=== PATIENT | female | born 1950 | race Caucasian/White ===

== ENCOUNTER 2020-05-21 15:23 | Inpatient (IN) | payer MEDICARE, OTHER ==
[~2020-05-21] VITALS: Ht 137.2 cm; Wt 40.4 kg
[2020-05-21] MEDS ORDERED: Z GUARD REMEDY PASTE 57 GM TUBE TOP PRN (18:00)
--- NOTE | 2020-05-21 19:30 | NUR ---
Patient arrived via Ambulance from [facility]. Awake, alert, oriented x3 and very pleasant. Able to assist in [facility] bed. Denies any pain/discomforts at this time. Able to move all extremities except right LE with knee immobilizer in place. Admission process and plan of care initiated.
[2020-05-21 20:00] VITALS: BP 153/48
[2020-05-21] MEDS ORDERED: ENOX40DI SQ (20:02)
[2020-05-21] MEDS ORDERED: LOSA1TAB36 PO (20:02)
[2020-05-21] MEDS ORDERED: ASPI81TA31 PO (20:02)
[2020-05-21] MEDS ORDERED: FOLI0.8T PO (20:02)
[2020-05-21] MEDS ORDERED: METH5TAB6 PO (20:02)
[2020-05-21] MEDS ORDERED: LOSA50TA39 PO (20:02)
[2020-05-21] MEDS ORDERED: ESCI10TA PO (20:02)
[2020-05-21] MEDS ORDERED: ZOLP5TAB8 PO (20:02)
[2020-05-21] MEDS ORDERED: hydrALAZINE HCL 25 MG TABLET PO PRN (22:15)
[2020-05-21] MEDS: ZOLPIDEM 5 MG TABLET PO PRN (22:39)
[2020-05-21 23:26] LABS: *BILIRUBIN,URIN NEGATIVE (NEGATIVE); *BLOOD, URINE NEGATIVE (NEGATIVE); *CLARITY,URINE CLOUDY (CLEAR); *COLOR,URINE YELLOW (YELLOW); *KETONES,URINE NEGATIVE (NEGATIVE); *UROBILINOGEN,URINE >=8.0 E.U./dl (NORMAL); LEUKOCYTE ESTERASE ,URINE NEGATIVE (NEGATIVE); NITRITE, URINE NEGATIVE (NEGATIVE); PH,URINE 7.5 (5.0-8.0); UGLUCOSE NEGATIVE (NEGATIVE)
[2020-05-22 04:00] VITALS: BP 122/56
[2020-05-22 04:03] LABS: RBC,URINE 0-3 /HPF (0-3); WBC,URINE 0-3 /HPF (0-3)
[2020-05-22 04:04] LABS: BACTERIA,URINE FEW /HPF (NONE SEEN); URINE AMORPHOUS PHOSPHATES MANY /HPF
[2020-05-22 04:05] LABS: SQUAMOUS EPITHELIAL CELL,UR MODERATE /HPF (NONE SEEN)
--- NOTE | 2020-05-22 06:12 | NUR ---
Shift End Report: VS stable. Very nice and cooperative. No complaint presented all night. All needs attended and met. Continue care as planned.
[2020-05-22] MEDS: PANTOPRAZOLE SODIUM 40 MG TABLET.DR PO SCH (06:23)
[2020-05-22 06:26] LABS: BASOPHILS # (AUTO) 0.1 K/uL (0.0-8.0); EOSINOPHILS # (AUTO) 0.1 K/uL (0.0-0.7); EOSINOPHILS % (AUTO) 1.2 % (0.0-7.0); HEMATOCRIT 28.5 % (31.2-41.9); HEMOGLOBIN 9.7 g/dL (10.9-14.3); LYMPHOCYTES % (AUTO) 26.6 % (20.5-51.5); MEAN CORPUSCULAR HEMOGLOBIN 32.5 uug (24.7-32.8); MEAN CORPUSCULAR HGB CONC 34 g/dL (32.3-35.6); MEAN CORPUSCULAR VOLUME 95.5 fL (75.5-95.3); MONOCYTES # (AUTO) 0.6 K/uL (2.0-10.0); MONOCYTES % (AUTO) 7.8 % (0.0-11.0); NEUTROPHILS # (AUTO) 4.7 K/uL (1.8-8.9); NEUTROPHILS % (AUTO) 63.4 % (38.5-71.5); PLATELET COUNT (AUTO) 402 K/uL (179-408); RED BLOOD CELL COUNT(AUTO) 2.98 MIL/uL (3.63-4.92); WHITE BLOOD COUNT (AUTO) 7.4 K/uL (3.8-11.8)
[2020-05-22 07:49] LABS: BILIRUBIN,TOTAL 0.6 mg/dL (0.2-1.0); CREATININE 0.5 mg/dL (0.6-1.3); MAGNESIUM 2.2 mg/dL (1.8-2.4); PHOSPHOROUS 3.6 mg/dL (2.5-4.9); POTASSIUM 4.1 mmol/L (3.5-5.1)
[2020-05-22 08:00] VITALS: BP 116/56
[2020-05-22] MEDS ORDERED: HYDROCHLOROTHIAZIDE 12.5 MG CAPSULE PO SCH (09:00)
[2020-05-22] MEDS: ASPIRIN 81 MG TAB.CHEW PO SCH (09:03)
[2020-05-22] MEDS: FOLIC ACID 1 MG TABLET PO SCH (09:03)
[2020-05-22] MEDS: DOCUSATE SODIUM 100 MG CAPSULE PO SCH ×2 (09:03→21:19)
[2020-05-22] MEDS: ESCITALOPRAM OXALATE 10 MG TABLET PO SCH (09:04)
[2020-05-22] MEDS: LOSARTAN POTASSIUM 50 MG TABLET PO SCH (09:04)
[2020-05-22] MEDS: ENOXAPARIN SODIUM 40 MG/0.4 ML DISP.SYRIN SQ SCH (09:06)
[2020-05-22] MEDS: METHIMAZOLE 5 MG TABLET PO SCH (09:12)
[2020-05-22] MEDS: HYDROCODONE/APAP 10-325 MG TABLET PO PRN (09:30)
[2020-05-22 15:07] LABS: THYROID STIMULATING HORMONE 1.906 mIU/mL (0.358-3.740)
[2020-05-22 16:10] VITALS: BP 106/52
[2020-05-22 20:09] VITALS: BP 101/47
[2020-05-22] MEDS: ZOLPIDEM 5 MG TABLET PO PRN (23:27)
--- NOTE | 2020-05-23 00:23 | NUR ---
AAOx4 S/P ORIF of the right distal femur fracture 05/18. Right lower extremity dressing clean dry and intact. On pain management. Denies any pain nor any discomfort. VSS. Needs attended. Voiding freely on the bedpan. Kept comfortable.Will monitor patient.
[2020-05-23 04:06] VITALS: BP 122/40
[2020-05-23] MEDS: PANTOPRAZOLE SODIUM 40 MG TABLET.DR PO SCH (06:23)
--- NOTE | 2020-05-23 07:13 | NUR ---
End of shift notes: Quiet night. AAOx4 No acute distress noted. Voiding well. Denies any pain nor any discomfort. Slept well most of the shift. VSS.
[2020-05-23 07:37] VITALS: BP 112/55
[2020-05-23] MEDS: ASPIRIN 81 MG TAB.CHEW PO SCH (08:19)
[2020-05-23] MEDS: FOLIC ACID 1 MG TABLET PO SCH (08:19)
[2020-05-23] MEDS: ESCITALOPRAM OXALATE 10 MG TABLET PO SCH (08:19)
[2020-05-23] MEDS: DOCUSATE SODIUM 100 MG CAPSULE PO SCH ×2 (08:20→20:40)
[2020-05-23] MEDS: METHIMAZOLE 5 MG TABLET PO SCH (08:20)
[2020-05-23] MEDS: LOSARTAN POTASSIUM 50 MG TABLET PO SCH (08:20)
[2020-05-23] MEDS: ENOXAPARIN SODIUM 40 MG/0.4 ML DISP.SYRIN SQ SCH (08:23)
--- NOTE | 2020-05-23 13:57 | NUR ---
patient is alert, oriented x4, verbally responsive, no sob, resp even nonlabored, skin warm and dry to touch, patient is status post right leg femur surgery, incision site is clean and dry, alfredo are intact, skin inspected underneath the leg brace, no skin issues noted, patient denied any pain, kept patient comfortable, needs met timely.
[2020-05-23 20:37] VITALS: BP 141/64
[2020-05-24] MEDS: ZOLPIDEM 5 MG TABLET PO PRN ×2 (00:40→23:29)
[2020-05-24 04:21] VITALS: BP 139/68
[2020-05-24 06:07] LABS: BASOPHILS # (AUTO) 0.1 K/uL (0.0-8.0); BASOPHILS % (AUTO) 0.8 % (0.0-2.0); EOSINOPHILS # (AUTO) 0.2 K/uL (0.0-0.7); EOSINOPHILS % (AUTO) 2.7 % (0.0-7.0); HEMATOCRIT 25.3 % (31.2-41.9); HEMOGLOBIN 8.8 g/dL (10.9-14.3); LYMPHOCYTES # (AUTO) 1.9 K/uL (20.0-40.0); MEAN CORPUSCULAR HGB CONC 35 g/dL (32.3-35.6); MEAN CORPUSCULAR VOLUME 94.5 fL (75.5-95.3); MONOCYTES # (AUTO) 0.7 K/uL (2.0-10.0); MONOCYTES % (AUTO) 9.7 % (0.0-11.0); NEUTROPHILS # (AUTO) 4.2 K/uL (1.8-8.9); NEUTROPHILS % (AUTO) 59.8 % (38.5-71.5); PLATELET COUNT (AUTO) 480 K/uL (179-408); RED BLOOD CELL COUNT(AUTO) 2.67 MIL/uL (3.63-4.92)
[2020-05-24 06:14] LABS: CREATININE 0.5 mg/dL (0.6-1.3); MAGNESIUM 1.8 mg/dL (1.8-2.4); PHOSPHOROUS 3.6 mg/dL (2.5-4.9); POTASSIUM 3.9 mmol/L (3.5-5.1)
[2020-05-24] MEDS: PANTOPRAZOLE SODIUM 40 MG TABLET.DR PO SCH (06:40)
[2020-05-24 08:23] VITALS: BP 134/59
[2020-05-24] MEDS: DOCUSATE SODIUM 100 MG CAPSULE PO SCH ×2 (08:36→20:25)
[2020-05-24] MEDS: FOLIC ACID 1 MG TABLET PO SCH (08:37)
[2020-05-24] MEDS: LOSARTAN POTASSIUM 50 MG TABLET PO SCH (08:37)
[2020-05-24] MEDS: ESCITALOPRAM OXALATE 10 MG TABLET PO SCH (08:37)
[2020-05-24] MEDS: ASPIRIN 81 MG TAB.CHEW PO SCH (08:37)
[2020-05-24] MEDS: METHIMAZOLE 5 MG TABLET PO SCH (08:38)
[2020-05-24] MEDS: ENOXAPARIN SODIUM 40 MG/0.4 ML DISP.SYRIN SQ SCH (08:41)
[2020-05-24 15:12] VITALS: BP 124/53
--- NOTE | 2020-05-24 17:45 | NUR ---
patient is alert, oriented x4, happy woman, no sob, resp even nonlabored, skin warm and to touch, incision site is clean and dry, no distress noted, participated with PT, OT services, tolerated well. needs attended timely
[2020-05-24 20:32] VITALS: BP 130/55
--- NOTE | 2020-05-24 21:42 | NUR ---
Awake alert and oriented x3-4 Needs attended. OOB to bedside commode. Voiding well. Needs attended. Denies any pain nor any discomfort. Right LE dressing clean dry and intact. Will monitor patient. Fall precautions maintained. Siderails up for safety. Call rucker within reach.
[2020-05-25 04:00] VITALS: BP 129/58
[2020-05-25] MEDS: PANTOPRAZOLE SODIUM 40 MG TABLET.DR PO SCH (06:20)
--- NOTE | 2020-05-25 06:38 | NUR ---
End of shift notes: Quiet night. OOB to bedside commode to void. Denies any pain nor any discomfort. VSS. Needs attended. BM noted this shift. Slept well.
[2020-05-25 08:00] VITALS: BP 131/60
[2020-05-25] MEDS: FOLIC ACID 1 MG TABLET PO SCH (09:46)
[2020-05-25] MEDS: LOSARTAN POTASSIUM 50 MG TABLET PO SCH (09:46)
[2020-05-25] MEDS: ASPIRIN 81 MG TAB.CHEW PO SCH (09:46)
[2020-05-25] MEDS: ESCITALOPRAM OXALATE 10 MG TABLET PO SCH (09:46)
[2020-05-25] MEDS: DOCUSATE SODIUM 100 MG CAPSULE PO SCH ×2 (09:46→20:20)
[2020-05-25] MEDS: METHIMAZOLE 5 MG TABLET PO SCH (09:47)
[2020-05-25] MEDS: ENOXAPARIN SODIUM 40 MG/0.4 ML DISP.SYRIN SQ SCH (09:49)
--- NOTE | 2020-05-25 13:33 | NUR ---
INTERDISCIPLINARY TEAM CONFERENCE
[2020-05-25 16:00] VITALS: BP 122/50
[2020-05-25] MEDS: HYDROCODONE/APAP 10-325 MG TABLET PO PRN ×2 (17:21→23:51)
[2020-05-25 20:00] VITALS: BP 132/90
--- NOTE | 2020-05-25 20:26 | NUR ---
Received pt resting in bed and watching tv. AAO x4. No acute distress noted. Denies pain/ discomfort. Due med given as ordered. Dressing clean and intact. Safety measures maintained. Call light and personal items within reach. Will continue to monitor.
[2020-05-26] MEDS: ZOLPIDEM 5 MG TABLET PO PRN ×2 (00:21→23:48)
[2020-05-26 04:00] VITALS: BP 119/61
[2020-05-26] MEDS: PANTOPRAZOLE SODIUM 40 MG TABLET.DR PO SCH (06:17)
[2020-05-26 08:10] VITALS: BP 137/55
[2020-05-26] MEDS: LOSARTAN POTASSIUM 50 MG TABLET PO SCH (08:25)
[2020-05-26] MEDS: ESCITALOPRAM OXALATE 10 MG TABLET PO SCH (08:25)
[2020-05-26] MEDS: DOCUSATE SODIUM 100 MG CAPSULE PO SCH ×2 (08:25→21:16)
[2020-05-26] MEDS: FOLIC ACID 1 MG TABLET PO SCH (08:25)
[2020-05-26] MEDS: ASPIRIN 81 MG TAB.CHEW PO SCH (08:25)
[2020-05-26] MEDS: METHIMAZOLE 5 MG TABLET PO SCH (08:29)
[2020-05-26] MEDS: ENOXAPARIN SODIUM 40 MG/0.4 ML DISP.SYRIN SQ SCH (08:31)
[2020-05-26 14:52] VITALS: BP 143/56
[2020-05-26] MEDS: HYDROCODONE/APAP 10-325 MG TABLET PO PRN ×2 (16:59→23:09)
[2020-05-26 20:00] VITALS: BP 104/77
--- NOTE | 2020-05-26 21:00 | NUR ---
Pt resting and reading book in bed. Axox4 . No distress noted, no SOB noted. Denies any pain/discomfort at the moment. Right lower extremity dressing clean dry and intact. VSS. All needs attended to promptly. Kept comfortable. Safety measure maintained. Call light and all personal items within pt reach. Will monitor patient throughout the night.
[2020-05-27 04:00] VITALS: BP 103/66
[2020-05-27] MEDS: PANTOPRAZOLE SODIUM 40 MG TABLET.DR PO SCH (05:59)
[2020-05-27 08:00] VITALS: BP 143/66
[2020-05-27] MEDS: DOCUSATE SODIUM 100 MG CAPSULE PO SCH ×2 (08:47→20:20)
[2020-05-27] MEDS: FOLIC ACID 1 MG TABLET PO SCH (08:48)
[2020-05-27] MEDS: ESCITALOPRAM OXALATE 10 MG TABLET PO SCH (08:48)
[2020-05-27] MEDS: ASPIRIN 81 MG TAB.CHEW PO SCH (08:48)
[2020-05-27] MEDS: LOSARTAN POTASSIUM 50 MG TABLET PO SCH (08:49)
[2020-05-27] MEDS: METHIMAZOLE 5 MG TABLET PO SCH (08:50)
[2020-05-27] MEDS: ENOXAPARIN SODIUM 40 MG/0.4 ML DISP.SYRIN SQ SCH (08:52)
[2020-05-27 15:52] VITALS: BP 129/57
[2020-05-27] MEDS: HYDROCODONE/APAP 10-325 MG TABLET PO PRN ×2 (17:42→22:17)
[2020-05-27 19:38] VITALS: BP 146/53
--- NOTE | 2020-05-27 20:20 | NUR ---
Received pt resting in bed. AAO x4. No acute distress noted. Denies pain/ discomfort. all due medication administered. Dressing clean and intact, immobilizer removed. All needs attended to Safety measures maintained. Call light and personal items within reach. Will continue to monitor.
[2020-05-28] MEDS: ZOLPIDEM 5 MG TABLET PO PRN (00:17)
[2020-05-28 04:30] VITALS: BP 130/69
[2020-05-28] MEDS: PANTOPRAZOLE SODIUM 40 MG TABLET.DR PO SCH (06:26)
[2020-05-28 07:49] VITALS: BP 129/65
[2020-05-28] MEDS: ESCITALOPRAM OXALATE 10 MG TABLET PO SCH (08:31)
[2020-05-28] MEDS: FOLIC ACID 1 MG TABLET PO SCH (08:31)
[2020-05-28] MEDS: ASPIRIN 81 MG TAB.CHEW PO SCH (08:31)
[2020-05-28] MEDS: DOCUSATE SODIUM 100 MG CAPSULE PO SCH ×2 (08:31→20:25)
[2020-05-28] MEDS: ENOXAPARIN SODIUM 40 MG/0.4 ML DISP.SYRIN SQ SCH (08:32)
[2020-05-28] MEDS: LOSARTAN POTASSIUM 50 MG TABLET PO SCH (08:39)
[2020-05-28] MEDS: METHIMAZOLE 5 MG TABLET PO SCH (08:40)
[2020-05-28 14:22] VITALS: BP 131/63
[2020-05-28] MEDS: HYDROCODONE/APAP 10-325 MG TABLET PO PRN ×2 (16:52→22:12)
[2020-05-28 19:46] VITALS: BP 112/52
[2020-05-29] MEDS: ZOLPIDEM 5 MG TABLET PO PRN ×2 (00:33→23:04)
[2020-05-29 04:45] VITALS: BP 120/61
[2020-05-29] MEDS: PANTOPRAZOLE SODIUM 40 MG TABLET.DR PO SCH (06:09)
--- NOTE | 2020-05-29 06:31 | NUR ---
No new changes. Vitals WNL. All due medication administered. PRN medication administered for 8/10 pain. Administered Ambien, per pt request, effective. Dressing clean and intact, no drainage noted. All needs attended to Safety measures maintained. Call light and personal items within reach. Will continue to monitor.
[2020-05-29 07:41] VITALS: BP 92/51
[2020-05-29] MEDS: DOCUSATE SODIUM 100 MG CAPSULE PO SCH ×2 (08:34→20:27)
[2020-05-29] MEDS: ESCITALOPRAM OXALATE 10 MG TABLET PO SCH (08:34)
[2020-05-29] MEDS: FOLIC ACID 1 MG TABLET PO SCH (08:34)
[2020-05-29] MEDS: ASPIRIN 81 MG TAB.CHEW PO SCH (08:34)
[2020-05-29] MEDS: ENOXAPARIN SODIUM 40 MG/0.4 ML DISP.SYRIN SQ SCH (08:38)
[2020-05-29] MEDS: LOSARTAN POTASSIUM 50 MG TABLET PO SCH (08:39)
[2020-05-29] MEDS: METHIMAZOLE 5 MG TABLET PO SCH (08:40)
[2020-05-29 14:50] VITALS: BP 132/75
[2020-05-29] MEDS: HYDROCODONE/APAP 10-325 MG TABLET PO PRN (15:39)
--- NOTE | 2020-05-29 18:57 | NUR ---
Patient remains alert, oriented x 4, not in any form of distress, on room air. Due medications administered and tolerated well. Assisted with her needs promptly. Patient complained of pain on right thigh, given PRN [place] as ordered with noted relief. Call light and frequently used items placed within patient's reach. Will continue to monitor and endorse accordingly.
[2020-05-29 20:36] VITALS: BP 126/59
--- NOTE | 2020-05-29 21:49 | NUR ---
Received pt resting and reading a book. AAO x4. No acute distress noted. Denies pain/ discomfort. Due med given as ordered. Safety measures maintained. Call light and personal items within reach. Will continue to monitor.
[2020-05-30 04:50] VITALS: BP 136/66
[2020-05-30] MEDS: PANTOPRAZOLE SODIUM 40 MG TABLET.DR PO SCH (06:08)
[2020-05-30 06:58] LABS: BASOPHILS # (AUTO) 0.1 K/uL (0.0-8.0); EOSINOPHILS # (AUTO) 0.3 K/uL (0.0-0.7); EOSINOPHILS % (AUTO) 3.6 % (0.0-7.0); HEMATOCRIT 28.2 % (31.2-41.9); HEMOGLOBIN 9.6 g/dL (10.9-14.3); LYMPHOCYTES # (AUTO) 1.9 K/uL (20.0-40.0); LYMPHOCYTES % (AUTO) 23.3 % (20.5-51.5); MEAN CORPUSCULAR HEMOGLOBIN 32.4 uug (24.7-32.8); MEAN CORPUSCULAR HGB CONC 34 g/dL (32.3-35.6); MEAN CORPUSCULAR VOLUME 94.9 fL (75.5-95.3); MONOCYTES # (AUTO) 0.5 K/uL (2.0-10.0); MONOCYTES % (AUTO) 6.3 % (0.0-11.0); NEUTROPHILS # (AUTO) 5.3 K/uL (1.8-8.9); NEUTROPHILS % (AUTO) 65.8 % (38.5-71.5); PLATELET COUNT (AUTO) 666 K/uL (179-408); RED BLOOD CELL COUNT(AUTO) 2.97 MIL/uL (3.63-4.92); WHITE BLOOD COUNT (AUTO) 8.1 K/uL (3.8-11.8)
[2020-05-30 07:22] LABS: BILIRUBIN,TOTAL 0.5 mg/dL (0.2-1.0); CREATININE 0.6 mg/dL (0.6-1.3); MAGNESIUM 1.9 mg/dL (1.8-2.4); PHOSPHOROUS 4.1 mg/dL (2.5-4.9); POTASSIUM 3.8 mmol/L (3.5-5.1); TOTAL PROTEIN, SERUM 6.4 g/dL (6.4-8.2)
[2020-05-30 08:00] VITALS: BP 124/60
[2020-05-30] MEDS: ASPIRIN 81 MG TAB.CHEW PO SCH (08:45)
[2020-05-30] MEDS: DOCUSATE SODIUM 100 MG CAPSULE PO SCH ×2 (08:45→20:18)
[2020-05-30] MEDS: FOLIC ACID 1 MG TABLET PO SCH (08:46)
[2020-05-30] MEDS: CYANOCOBALAMIN 1000 MCG/ML VIAL IM SCH (08:46)
[2020-05-30] MEDS: METHIMAZOLE 5 MG TABLET PO SCH (08:46)
[2020-05-30] MEDS: ESCITALOPRAM OXALATE 10 MG TABLET PO SCH (08:46)
[2020-05-30] MEDS: LOSARTAN POTASSIUM 50 MG TABLET PO SCH (08:46)
[2020-05-30] MEDS: ENOXAPARIN SODIUM 40 MG/0.4 ML DISP.SYRIN SQ SCH (08:53)
[2020-05-30] MEDS: HYDROCODONE/APAP 10-325 MG TABLET PO PRN (15:07)
[2020-05-30 15:52] VITALS: BP 122/79
--- NOTE | 2020-05-30 18:53 | NUR ---
Pt received resting in bed, assessed, no acute distress, and no SOB. Pt reports effective relief from PRN pain medication administration. Pt seen by Md, new orders placed for Rapid Covid19 test and Post- op follow up XRay to be done tomorrow in preparation for D/C on 06/06. Pt compliant with routine medication administration and therapies as offered. All safety and comfort needs promptly attended to throughout the shift. Call light placed within reach. Will continue to monitor and endorse to on coming inspector bullet slugs.
[2020-05-30 20:00] VITALS: BP 125/59
--- NOTE | 2020-05-30 21:35 | NUR ---
Received pt resting in bed and watching tv. AAO x4. No acute distress noted. Denies pain/ discomfort. Surgical site clean and dry, no s/s of infection. Due med given as ordered. Safety measures maintained. Call light and personal items within reach. Will continue to monitor.
[2020-05-31] MEDS: ZOLPIDEM 5 MG TABLET PO PRN ×2 (00:25→23:29)
[2020-05-31 04:00] VITALS: BP 135/66
[2020-05-31] MEDS: PANTOPRAZOLE SODIUM 40 MG TABLET.DR PO SCH (06:06)
[2020-05-31 08:00] VITALS: BP 142/58
[2020-05-31] MEDS: ENOXAPARIN SODIUM 40 MG/0.4 ML DISP.SYRIN SQ SCH (08:01)
[2020-05-31] MEDS: FOLIC ACID 1 MG TABLET PO SCH (08:02)
[2020-05-31] MEDS: ESCITALOPRAM OXALATE 10 MG TABLET PO SCH (08:03)
[2020-05-31] MEDS: LOSARTAN POTASSIUM 50 MG TABLET PO SCH (08:03)
[2020-05-31] MEDS: ASPIRIN 81 MG TAB.CHEW PO SCH (08:03)
[2020-05-31] MEDS: DOCUSATE SODIUM 100 MG CAPSULE PO SCH ×2 (08:03→20:15)
[2020-05-31] MEDS: CYANOCOBALAMIN 1000 MCG/ML VIAL IM SCH (08:03)
[2020-05-31] MEDS: METHIMAZOLE 5 MG TABLET PO SCH (08:03)
[2020-05-31 15:55] VITALS: BP 133/62
[2020-05-31] MEDS: HYDROCODONE/APAP 10-325 MG TABLET PO PRN (20:11)
[2020-05-31 21:21] VITALS: BP 137/51
--- NOTE | 2020-05-31 23:30 | NUR ---
Pt resting in bed talking on phone with family. No distress noted, no SOB noted. complaint of 9/10 pain. Administered PRN [place], per pt request. All due medication administered as ordered. Right lower extremity dressing clean dry and intact. VSS. All needs attended to promptly. Kept comfortable. Assisted to the bathroom x1 BM. Pt requested Ambien, administered. kept comfortable. Safety measure maintained. Call light and all personal items within pt reach. Will monitor patient throughout the night.
[2020-06-01 05:13] VITALS: BP 113/64
[2020-06-01] MEDS: PANTOPRAZOLE SODIUM 40 MG TABLET.DR PO SCH (06:05)
[2020-06-01 07:48] VITALS: BP 128/60
[2020-06-01] MEDS: ASPIRIN 81 MG TAB.CHEW PO SCH (08:35)
[2020-06-01] MEDS: FOLIC ACID 1 MG TABLET PO SCH (08:35)
[2020-06-01] MEDS: DOCUSATE SODIUM 100 MG CAPSULE PO SCH ×2 (08:35→20:50)
[2020-06-01] MEDS: ESCITALOPRAM OXALATE 10 MG TABLET PO SCH (08:35)
[2020-06-01] MEDS: LOSARTAN POTASSIUM 50 MG TABLET PO SCH (08:36)
[2020-06-01] MEDS: METHIMAZOLE 5 MG TABLET PO SCH (08:36)
[2020-06-01] MEDS: CYANOCOBALAMIN 1000 MCG/ML VIAL IM SCH (08:36)
[2020-06-01] MEDS: ENOXAPARIN SODIUM 40 MG/0.4 ML DISP.SYRIN SQ SCH (08:38)
--- NOTE | 2020-06-01 13:38 | NUR ---
INTERDISCIPLINARY TEAM CONFERENCE
--- NOTE | 2020-06-01 13:48 | NUR ---
alfredo removed, steri strips applied
[2020-06-01 15:11] VITALS: BP 100/46
--- NOTE | 2020-06-01 18:39 | NUR ---
no changes noted during shift
[2020-06-01 20:00] VITALS: BP 118/70
[2020-06-01 20:24] VITALS: BP 118/70
[2020-06-01] MEDS: HYDROCODONE/APAP 10-325 MG TABLET PO PRN (20:54)
[2020-06-02] MEDS: ZOLPIDEM 5 MG TABLET PO PRN (00:03)
[2020-06-02 04:00] VITALS: BP 138/62
[2020-06-02] MEDS: PANTOPRAZOLE SODIUM 40 MG TABLET.DR PO SCH (06:09)
[2020-06-02 08:02] VITALS: BP 90/63
[2020-06-02] MEDS: HYDROCODONE/APAP 10-325 MG TABLET PO PRN (12:23)
[2020-06-02] MEDS: ASPIRIN 81 MG TAB.CHEW PO SCH (12:23)
[2020-06-02] MEDS: ESCITALOPRAM OXALATE 10 MG TABLET PO SCH (12:23)
[2020-06-02] MEDS: CYANOCOBALAMIN 1000 MCG/ML VIAL IM SCH (12:24)
[2020-06-02] MEDS: METHIMAZOLE 5 MG TABLET PO SCH (12:24)
[2020-06-02] MEDS: FOLIC ACID 1 MG TABLET PO SCH (12:24)
[2020-06-02] MEDS: LOSARTAN POTASSIUM 50 MG TABLET PO SCH (12:24)
[2020-06-02] MEDS: ENOXAPARIN SODIUM 40 MG/0.4 ML DISP.SYRIN SQ SCH (12:26)
[2020-06-02] MEDS: DOCUSATE SODIUM 100 MG CAPSULE PO SCH (12:26)
[2020-06-02 15:48] VITALS: BP 127/57
--- NOTE | 2020-06-02 17:11 | NUR ---
D/C TO HOME VIA AMBULANCE. D/C INSTRUCTIONS GIVEN AND VERBALIZED UNDERSTANDING.
== END 2020-06-02 16:16 | disposition home health service (06) | DRG 560 ==
PROVIDERS: ADMIT Physical Medicine & Rehabilitation Pain Medicine; ATTEND Physical Medicine & Rehabilitation Pain Medicine
DX: S72.001D Fracture of unspecified part of neck of right femur, subsequent encounter for closed fracture with routine healing (principal); D68.59 Other primary thrombophilia; E44.0 Moderate protein-calorie malnutrition; E87.1 Hypo-osmolality and hyponatremia; W18.30XD Fall on same level, unspecified, subsequent encounter; D64.9 Anemia, unspecified; E05.90 Thyrotoxicosis, unspecified without thyrotoxic crisis or storm; E78.5 Hyperlipidemia, unspecified; H54.3 Unqualified visual loss, both eyes; I11.9 Hypertensive heart disease without heart failure; I70.0 Atherosclerosis of aorta; S72.401D Unspecified fracture of lower end of right femur, subsequent encounter for closed fracture with routine healing; E53.8 Deficiency of other specified B group vitamins; F32.9 Major depressive disorder, single episode, unspecified; Z86.12 Personal history of poliomyelitis; Z87.891 Personal history of nicotine dependence; R26.9 Unspecified abnormalities of gait and mobility; M25.473 Effusion, unspecified ankle; H54.62 Unqualified visual loss, left eye, normal vision right eye; R50.9 Fever, unspecified; G62.9 Polyneuropathy, unspecified; M89.8X7 Other specified disorders of bone, ankle and foot
CPT/HCPCS: 36415; 73551; 82652; 83735; 84100; 84443; 85025; 87086; J1650; J3420